=== PATIENT | female | born 1970 | race Caucasian/White ===

== ENCOUNTER 2018-08-10 07:52 | Observation (INO) | payer OTHER ==
[2018-08-10] VITALS (20 sets, daily range): BP systolic 112–135; BP diastolic 63–74; PULSE 66–100; RESP 7–18; Ht 144.8 cm; Wt 70.4 kg
[~2018-08-10] VITALS: Ht 144.8 cm; Wt 70.4 kg
[~2018-08-10 07:52] MED LIST: PANT40TA3 PO; PANTOPRAZOLE; RANITIDINE
[2018-08-10] MEDS ORDERED: CEFAZOLIN 2 GM/50 ML (PMX) 50 ML IVPB SCH (08:00)
[2018-08-10] MEDS ORDERED: SOD CHLORIDE 0.9% 1,000 ML IV SCH (08:00)
--- NOTE | 2018-08-10 09:44 | PREAC ---
Date/Time of Note Date/Time of Note DATE: 08/10/18 TIME: 09:43 Anesthesia Eval and Record Evaluation Time Pre-Procedure Interview DATE: 08/10/18 TIME: 09:43 Age 47 Sex female NPO: 8 hrs Preoperative diagnosis left breast cancer Planned procedure left partial mastectomy Past Medical History Past Medical History: Includes GI: GERD (well-controlled) Surgery & Anesthesia Issues No known issue Meds Anticoagulation: No Beta Josie within 24 hr: No Reason Beta Josie not given: Pt. not on B-Josie Active Scripts Pantoprazole* (Protonix*) 40 Mg Tablet., 40 MG PO DAILY, #30 TAB Prov:DAJUAN TALBOT [employer]ODUCT MARKETING INTERN 03/07/15 Reported Medications [Pantoprazole] No Conflict Check 09/15/15 [Ranitidine] No Conflict Check 09/15/15 Current Medications Sodium Chloride 1,000 ml @ 75 mls/hr [id number] IV ; Start 08/10/18 at 08:00; Stop 08/10/18 at 21:19 Cefazolin Sodium/ Dextrose 50 ml @ 100 mls/hr PREOP IVPB ; Start 08/10/18 at 08:00; Stop 08/10/18 at 19:00 Meds reviewed: Yes Allergies Coded Allergies: No Known Allergy (Unverified , 03/06/15) Allergies Reviewed: Yes Labs/Studies Labs Reviewed: Reviewed by anesthesiologist test: Negative Studies: ECG, CXR Pre-procedure Exam Airway: Adequate mouth opening, Adequate thyromental dist Mallampati: Mallampati II Teeth: Normal Lung: Normal Heart: Normal ASA Physical Status ASA physical status: 2 Emergency: None Planned Anesthetic General/MAC: LMA Planned Pain Management Parenteral pain med, Local by surgeon Pre-operative Attestations Prior to commencing anesthesia and surgery, the patient was re-evaluated, there was verification of: *The patient's identity *The results of appropriate recent lab work and preoperative vital signs *The above evaluation not changing prior to induction *Anesthetic plan, risk benefits, alternative and complications discussed with patient/family; questions answered; patient/family understands, accepts and wishes to proceed. GEREMIAS LEBRON Aug 10, 2018 09:44
[2018-08-10] MEDS ORDERED: FENTAnyl 50 MCG/ML VIAL ONE ×2 (09:59→11:11)
[2018-08-10] MEDS ORDERED: MIDAZOLAM 1 MG/ML 2 ML INJ ONE (09:59)
[2018-08-10] MEDS ORDERED: CEFAZOLIN 1 GM INJ ONE (09:59)
[2018-08-10] MEDS ORDERED: PROPOFOL 20 ML ONE (09:59)
[2018-08-10] MEDS ORDERED: LIDOCAINE 2% (SDV) 5 ML INJ ONE (09:59)
[2018-08-10] MEDS ORDERED: DEXAMETHASONE 4 MG/ML 5 ML INJ ONE (11:06)
[2018-08-10] MEDS ORDERED: ONDANSETRON 4 MG INJ ONE (11:06)
[2018-08-10] MEDS ORDERED: FAMOTIDINE 20 MG INJ ONE (11:06)
[2018-08-10] MEDS ORDERED: METOCLOPRAMIDE 10 MG INJ ONE (11:06)
[2018-08-10] MEDS ORDERED: ISOSULFAN BLUE 1% 5 ML INJ SC ONE (11:18)
[2018-08-10] MEDS ORDERED: HYDROmorphONE 1 MG/5 ML IV SYRINGE IV PRN ×3 (11:30)
[2018-08-10] MEDS ORDERED: ONDANSETRON 4 MG INJ IV PRN ×2 (11:30→13:00)
[2018-08-10] MEDS ORDERED: OXYCODONE/ACETAMINOPHEN (5/325) TAB PO PRN ×2 (11:30)
[2018-08-10] MEDS ORDERED: MEPERIDINE 25 MG INJ IV PRN (11:30)
[2018-08-10] MEDS: D5W-0.45 NACL + KCL 20 MEQ 1,000 ML IV SCH ×2 (12:50→22:06)
--- NOTE | 2018-08-10 12:50 | SIPON ---
Date/Time of Note Date/Time of Note DATE: 08/10/18 TIME: 12:48 Operative Report Preoperative Diagnosis Locally advanced left breast cancer Postoperative Diagnosis Same Operation/Procedure Performed Left needle directed partial mastectomy and axillary dissection Surgeon see signature line access services assistant Dr Tang Anesthesia: general Estimated blood loss: 10 - 50 ml's Transfusion Required none Specimen Left partial mastectomy specimen and additional anterior margin tissue and left axillary contents Grafts/Implants none Complications none ROMAINE KAUR MD Aug 10, 2018 12:50
[2018-08-10] MEDS ORDERED: morphine 2 MG INJ IV PRN (13:00)
[2018-08-10] MEDS: SOD CHLORIDE 0.9% 1,000 ML IV SCH (13:39)
--- NOTE | 2018-08-10 14:22 | PAC ---
Date/Time of Note Date/Time of Note DATE: 08/10/18 TIME: 14:22 Post-Anesthesia Notes Post-Anesthesia Note Last documented vital signs Vital Signs Date Temp Pulse Resp B/P (MAP) Pulse Ox O2 O2 Flow FiO2 Time Delivery Rate 08/10/18 88 12 127/66 100 Nasal 3.0 13:29 (86) Cannula 08/10/18 98.6 12:57 Activity: WNL Respiratory function: WNL Cardiovascular function: WNL Mental status: Baseline Pain reasonably controlled: Yes Hydration appropriate: Yes Nausea/Vomiting absent: Yes GEREMIAS LEBRON Aug 10, 2018 14:22
[2018-08-10] MEDS: ACETAMINOPHEN 1000MG/100ML IV 100 ML IVPB PRN (14:25)
--- NOTE | 2018-08-10 14:43 | OPR ---
DATE OF OPERATION: 08/10/2018 PREOPERATIVE DIAGNOSIS: Locally advanced left breast cancer. POSTOPERATIVE DIAGNOSIS: Locally advanced left breast cancer. OPERATION PERFORMED: Left needle-directed partial mastectomy and axillary dissection. ANESTHESIA: General. ANESTHESIOLOGIST: Nurse wire coater, Robert Aragon. SURGEON: Juventino Valdes MD APPLICATION ARCHITECT: Jason Acosta MD INDICATIONS FOR PROCEDURE: The patient is an unfortunate 47-year-old female who underwent surveillan ce mammography and was found to have a suspicious lesion in the retroareolar area. Ultrasound biopsy was then performed, confirmed invasive cancer. She also had a large abnormal appearing left axillar y lymph nodes and biopsy confirmed axillary metastases. DESCRIPTION OF PROCEDURE: The patient was brought to the operating theater, placed under general ane sthesia. The left breast in the axillary region was prepped and draped in the usual sterile fashion. Attention was directed to performing the partial mastectomy. A periareolar incision was made from the 12 o'clock location through the 3 o'clock location to the 6 o'clock location. Subcutaneous tissu e was dissected with cautery. Skin edges were elevated with skin hooks and wide circumferential diss ection of the tissue associated with the mass then took place using cautery. Specimen was then [place], transected, oriented, and sent for radiographic confirmation of capture. Dr. Valdes then inspect ed the retroareolar area under the nipple. There was some suspicion that there was some possible res idual malignancy. Therefore, an additional anterior margin was dissected using cautery. It was orie nted and sent for permanent pathologic analysis. The wound was then irrigated. Minimal bleeding was controlled with cautery, and the skin was then reapproximated with a deep dermal layer of 4-0 Vicryl sutures in interrupted fashion, followed by final skin approximation with 5-0 PDS sutures in subcuti cular fashion. Attention was then directed to performing the axillary dissection. Approximately 5 c m incision was made in the left axillary hairline. Subcutaneous tissue was dissected with cautery do wn through the clavipectoral fascia. With blunt dissection along the chest wall, the long thoracic n erve was identified and kept out of harm's way. There were multiple firm palpable lymph nodes consis tent with the known axillary metastases. More superiorly, the axillary vein was identified and disse cted from medial to lateral. Posterolaterally, the latissimus dorsi muscle was identified throughout its course. The thoracodorsal neurovascular bundle was also identified and dissected throughout its course and kept out of harm's way. Significant portion of level 1 and level 2 lymph nodes were then meticulously dissected with combination of suture ligation, the LigaSure device and cautery. Specim en was elevated, transected, and sent for permanent pathologic analysis. Dr. Valdes palpated the leve l 3 region. There did not appear to be any definite residual disease. The wound was then irrigated. Minimal bleeding was controlled with cautery. A #10 flat Levy-Gonzalez drain was then brought thro ugh the left mid axillary line. It was cut to size, laid within the axilla and secured in place with 2-0 nylon suture in the standard fashion. The skin was then reapproximated with 4-0 Vicryl suture i n subcuticular fashion. Dermabond was then applied to both incisions. The patient tolerated the pro cedure well. The estimated blood loss was 50 mL. There were no complications and the patient was tr ansported to the recovery room in stable condition, where circumferential compression dressing was ap plied. Dictated By: JUVENTINO VALDES MD TL/JUAN Conf#: [id number] DID#: [id number] CC: JASON ACOSTA MD;*EndCC*
[2018-08-10] MEDS: HYDROCODONE/APAP (5/325) TAB PO PRN (22:06)
[2018-08-11] MEDS: ACETAMINOPHEN 1000MG/100ML IV 100 ML IVPB PRN (00:47)
[2018-08-11 01:40] VITALS: BP 104/58; PULSE 76; RESP 18
[2018-08-11] MEDS: SOD CHLORIDE 0.9% 1,000 ML IV SCH ×2 (02:00→14:10)
[2018-08-11] MEDS: D5W-0.45 NACL + KCL 20 MEQ 1,000 ML IV SCH ×2 (04:50→12:43)
--- NOTE | 2018-08-11 06:08 | HP ---
DATE OF ADMISSION: 08/10/2018 CHIEF COMPLAINT AND HISTORY OF PRESENTING ILLNESS: The patient is a 47-year-old female who was being followed by Dr. Kaur as an outpatient. The patient underwent surveillance mammography and was foun d to have a suspicious lesion in the retroareolar area of the left breast. The patient underwent ult rasound-guided biopsy which confirmed invasive cancer. The patient also had large abnormal appearing left axillary lymph node and biopsy confirmed axillary metastasis. [facility] and underwent left needle-directed partial mastectomy and axillary dissection. The patie nt has significant postoperative pain and is being admitted for further evaluation and management. T he patient denies history of headache, dizziness, syncope. No history of sore throat. No history of abdominal pain. No history of nausea, vomiting. No history of shortness of breath. No history of leg edema or resting leg pain. REVIEW OF SYSTEMS: Other than postoperative pain, rest of the review of systems is unremarkable. PAST SURGICAL HISTORY: The patient is status post . ALLERGIES: NONE. SOCIAL HISTORY: No smoking or alcohol. FAMILY HISTORY: Noncontributory. PHYSICAL EXAMINATION: GENERAL: Revealed the patient to be awake, alert. VITAL SIGNS: Temperature 98.6, pulse 90, respirations 12, blood pressure 129/70, O2 saturation 99% o n 3 liters. HEENT: Atraumatic, normocephalic head. Conjunctivae and lids are normal. Oropharynx is clear. NECK: Supple. No mass or thyromegaly. CHEST: Fairly clear. No use of accessory muscles. CARDIOVASCULAR: Regular rate and rhythm. S1, S2 normal. No murmur. ABDOMEN: Soft, nondistended, nontender. Bowel sounds plus. EXTREMITIES: No leg edema. NEUROLOGIC: The patient is awake, alert. Follows simple commands. Moves all extremities. IMPRESSION: Locally advanced left breast cancer status post partial mastectomy and axillary dissecti on. PLAN: The patient will be admitted on medical floor. The patient will be started on IV fluid, clear liquid diet, which will be advanced as tolerated. For pain control, the patient will be started on Tylenol, [place] and IV morphine based upon severity. For DVT prophylaxis, we will use SCDs. Plan of care was discussed with patient's daughter. We will continue to follow her from a medical standpoint . We will order followup CBC and BMP tomorrow. Dictated By: CHARLEE SILVA/JUAN Conf#: [id number] DID#: [id number] CC: ROMAINE KAUR MD;*EndCC*
[2018-08-11 07:42] VITALS: BP 110/69; PULSE 67; RESP 18
[2018-08-11] MEDS: HYDROCODONE/APAP (5/325) TAB PO PRN (12:05)
[2018-08-11 14:28] VITALS: BP 111/68; PULSE 77; RESP 18
[2018-08-11] MEDS ORDERED: HYDR-3601 PO (14:33)
--- NOTE | 2018-08-11 21:37 | PN ---
DATE: 08/11/2018 Postop day #1 status post left breast partial mastectomy and axillary resection for cancer of left br east. SUBJECTIVE: Has been complaining of pain and required morphine IV today morning and a while ago Norc o pain medication p.o. OBJECTIVE: GENERAL: Awake, alert, no acute distress. VITAL SIGNS: Temperature maximum today 98.6, heart rate 76, respiration 18, blood pressure 104/58, s aturation 93% room air. LABORATORY FINDINGS: No labs has been done today. Levy-Gonzalez drain has drained 50 mL of serosang uineous fluid overnight. Clinically, the patient is not in acute distress. HEART: Regular. LUNGS: Clear. Dressing is intact. Wrap around bias dressing is not too tight. Levy-Gonzalez is in place draining serosanguineous fluid. EXTREMITIES: The patient can move left upper extremity and almost full range. PLAN: The patient can be discharged home to be followed by Dr. Valdes. The patient states that jannette turk she has made an appointment for 08/27/2018 to be seen by Dr. Valdes in his office. The patient kade l be given prescription for pain medication by medical service. Dictated By: ELEUTERIO ACOSTA MD PS/NTS Conf#: [id number] DID#: [id number] CC: ROMAINE VALDES MD;*EndCC*
--- NOTE | 2018-08-11 22:07 | DS ---
Date/Time of Note Date/Time of Note DATE: 08/11/18 TIME: 22:05 Discharge Summary Admission/Discharge Info Admit Date/Time Aug 10, 2018 at 12:50 Discharge Date/Time Aug 11, 2018 at 15:05 Hx of Present Illness The patient is a 47-year-old female who was being followed by Dr. Valdes as an outpatient. The patient underwent surveillance mammography and was found to have a suspicious lesion in the retroareolar area of the left breast. The patient underwent ultrasound-guided biopsy which confirmed invasive cancer. The patient also had large abnormal appearing left axillary lymph node and biopsy confirmed axillary metastasis. The patient was brought into hospital today and underwent left needle-directed partial mastectomy and axillary dissection. The patient has significant postoperative pain and is being admitted for further evaluation and management. The patient denies history of headache, dizziness, syncope. No history of sore throat. No history of abdominal pain. No history of nausea, vomiting. No history of shortness of breath. No history of leg edema or resting leg pain. Hospital Course Locally advanced left breast cancer, status post partial mastectomy and axillary dissection. D/W DR Ingram. Home Meds Active Scripts Hydrocodone Bit-Acetaminophen (Hydrocodone Bit-APAP) 5-325MG Tablet, 1 TAB PO Q4H PRN for MODERATE PAIN LEVEL 4-6, #20 TAB Prov:ESTRELLA ALVARES 08/11/18 Pantoprazole* (Protonix*) 40 Mg Tablet., 40 MG PO DAILY, #30 TAB Prov:DAJUAN TALBOT NP 03/07/15 Discontinued Reported Medications [Pantoprazole] No Conflict Check 09/15/15 [Ranitidine] No Conflict Check 09/15/15 Follow-up Plan Follow-up with Dr. Valdes in 1 to 2 weeks Primary Care Provider Not On Staff Doctor Time spent on discharge: > 30 minutes ESTRELLA ALVARES Aug 11, 2018 22:07
== END 2018-08-11 15:05 | disposition home or self-care (01) ==
LOC: SDS 07:52 → REC 12:50 → INTOOBSV 12:50 → MS1 14:36
PROVIDERS: ADMIT Surgery Surgical Oncology; ATTEND Surgery Surgical Oncology
DX: C50.912 Malignant neoplasm of unspecified site of left female breast (principal); C77.3 Secondary and unspecified malignant neoplasm of axilla and upper limb lymph nodes; Z17.0 Estrogen receptor positive status [ER+]; N60.12 Diffuse cystic mastopathy of left breast; K21.9 Gastro-esophageal reflux disease without esophagitis; M19.90 Unspecified osteoarthritis, unspecified site
CPT/HCPCS: 19301; 38525; 88307; J0131; J0690; J1100; J1170; J2175; J2250; J2270; J2405; J2765; J3010; J3480; J7030; Z7500; Z7512; Z7610; 99217; G0378; Q9968

== ENCOUNTER 2018-10-08 11:41 | Day surgery (SDC) | payer OTHER ==
--- NOTE | 2018-10-07 21:28 | PREAC ---
Date/Time of Note Date/Time of Note DATE: 10/07/18 TIME: 21:27 Anesthesia Eval and Record Evaluation Time Pre-Procedure Interview DATE: 10/07/18 TIME: 21:27 Age 47 Sex female Preoperative diagnosis left breast cancer Planned procedure portacath placement Past Medical History Past Medical History: Includes GI: GERD (well controlled) Surgery & Anesthesia Issues No known issue (s/p left partial mastectomy) Meds Anticoagulation: No Beta Josie within 24 hr: No Reason Beta Josie not given: Pt. not on B-Josie Active Scripts Hydrocodone Bit-Acetaminophen (Hydrocodone Bit-APAP) 5-325MG Tablet, 1 TAB PO Q4H PRN for MODERATE PAIN LEVEL 4-6, #20 TAB Prov:ESTRELLA ALVARES 08/11/18 Pantoprazole* (Protonix*) 40 Mg Tablet., 40 MG PO DAILY, #30 TAB Prov:DAJUAN TALBOT NP 03/07/15 Meds reviewed: Yes Allergies Coded Allergies: No Known Allergy (Unverified , 03/06/15) Allergies Reviewed: Yes Labs/Studies Labs Reviewed: Reviewed by anesthesiologist ASA Physical Status ASA physical status: 3 Emergency: None Planned Anesthetic General/MAC: MAC Planned Pain Management Parenteral pain med, Local by surgeon Pre-operative Attestations Prior to commencing anesthesia and surgery, the patient was re-evaluated, there was verification of: *The patient's identity *The results of appropriate recent lab work and preoperative vital signs *The above evaluation not changing prior to induction *Anesthetic plan, risk benefits, alternative and complications discussed with patient/family; questions answered; patient/family understands, accepts and wishes to proceed. GEREMIAS LEBRON Oct 07, 2018 21:28
[~2018-10-08] VITALS: Ht 149.9 cm; Wt 70.0 kg
[~2018-10-08 11:41] MED LIST changes: +ELIM TOP; +FAMO-96 PO; +HYDR-3601 PO; +HYDR50TA15 PO; +LORA10TA3 PO; -PANTOPRAZOLE; -RANITIDINE
[2018-10-08 14:15] VITALS: Ht 149.9 cm; Wt 70.0 kg
[2018-10-08 14:17] VITALS: BP 138/61; PULSE 66; RESP 16
[2018-10-08] MEDS ORDERED: LIDOCAINE 1% (MDV) 20 ML INJ ONE (14:59)
[2018-10-08] MEDS ORDERED: HEPARIN 1000 UNITS/ML 10 ML INJ ONE (14:59)
[2018-10-08] MEDS ORDERED: CEFAZOLIN 1 GM/50 ML (PMX) 50 ML IVPB ONE (14:59)
[2018-10-08] MEDS ORDERED: POLYMYXIN/BACITRACIN 1L IRRIG IRR ONE (15:00)
[2018-10-08] MEDS ORDERED: MIDAZOLAM 1 MG/ML 2 ML INJ ONE (15:06)
[2018-10-08] MEDS ORDERED: FENTAnyl 50 MCG/ML VIAL ONE (15:06)
[2018-10-08 16:25] VITALS: BP 130/74; PULSE 76; RESP 18
[2018-10-08] MEDS ORDERED: HYDROCODONE/APAP (5/325) TAB PO ONE (17:00)
--- NOTE | 2018-10-08 17:11 | RADRPT ---
PROCEDURE: RIGHT INTERNAL JUGULAR PORT PLACEMENT CLINICAL INDICATION: Breast cancer TECHNIQUE: Versed and Fentanyl were administered by the radiology nurse who monitored the patient. Ancef one gram intravenously was also administered preoperatively. Conscious sedation time: 30 min Fluoroscopy time: 3.2 min Number of images/cine sequences: 2 Informed consent was obtained following careful explanations of the risks and benefits of the procedu re. Preliminary ultrasound was obtained and demonstrates a widely patent right internal jugular vein. This central venous catheter was inserted with all elements of maximal sterile barrier technique, cap AND mask AND sterile gown AND sterile gloves AND sterile full-body drape AND hand hygiene AND 2% chl orhexidine for cutaneous antisepsis. Sterile Ultrasound technique with sterile gel and sterile probe covers was also utilized. The patients right chest and neck were prepped and draped in the usual sterile fashion. 1% lidocai ne was utilized. The right internal jugular vein was punctured with a micropuncture needle under dire ct ultrasound guidance and a guide wire was advanced into the central veins as confirmed by fluorosco py. The needle was exchanged for an introducer. A recorded ultrasound image was obtained. A site in the patients chest wall was selected and 1% lidocaine with epinephrine was administered to the skin. Utilizing a #15 blade, an incision was made and a pocket was created utilizing blunt dis section with a Rafaela clamp. The pocket was irrigated with normal saline. The catheter of the port was then tunneled retrograde from the pocket towards the puncture site in th e patients neck. A guidewire was advanced through the introducer in the patients neck and the i ntroducer was exchanged over the wire for a #9 [place] sheath, which was placed in the right internal jugular vein. The catheter was advanced through the peel-away sheath and the sheath was removed. The tip of the catheter was placed in the mid right atrium. The proximal end of the catheter was then cut to the appropriate length and connected to the port. The port was placed inside the pocket. It flush ed and aspirated well. A photo spot image confirms proper positioning of the catheter tip in the upper right atrium. The incision in the patients chest was closed with interrupted subcutaneous 2-0 Vicryl sutures. Th e incision in the neck was closed with a subcuticular 4-0 Vicryl suture. Dermabond was applied to bot h incisions and Steri-Strips were also applied. The port was accessed and flushed with heparinized saline. A sterile dressing was applied. The patient tolerated the procedure well COMPARISON: none FINDINGS: as above. RPTAT: AA IMPRESSION: 1. Uncomplicated placement of an #7 [place] single lumen Power Injectable Port in the right internal j ugular vein with its tip overlying the upper right atrium region. 2. The catheter is ready for use. .Yusef Somers MD, MD Date Time Electronically viewed and signed by .Yusef Somers MD, on 10/08/2018 17:11 .S/
--- NOTE | 2018-10-20 14:58 | HPN ---
Date/Time of Note Date/Time of Note DATE: 10/20/18 TIME: 14:58 Interval H&P Admission Note Pt. seen H&P reviewed: No system changes PRASANNA HUIZAR MD Oct 20, 2018 14:58
== END 2018-10-08 17:28 | disposition home or self-care (01) ==
LOC: SDS 11:41
PROVIDERS: ATTEND Internal Medicine Hematology & Oncology
DX: C50.912 Malignant neoplasm of unspecified site of left female breast (principal)
CPT/HCPCS: 36561; 85025; 85610; 85730; C1788; J0690; J1644; J2250; J3010; Z7610

== ENCOUNTER 2018-10-14 22:09 | Emergency (ER) | payer OTHER ==
[~2018-10-14] VITALS: Ht 144.8 cm; Wt 71.3 kg
[~2018-10-14 22:09] MED LIST changes: -HYDR-3601 PO; -PANT40TA3 PO
[2018-10-14 22:18] VITALS: BP 142/72; PULSE 77; RESP 18; Ht 144.8 cm; Wt 71.3 kg
[2018-10-15] MEDS ORDERED: FAMOTIDINE 20 MG TAB PO ONE (01:00)
[2018-10-15] MEDS ORDERED: DIPHENHYDRAMINE 50 MG CAP PO ONE (01:00)
== END 2018-10-15 01:42 | disposition home or self-care (01) ==
LOC: FTE 22:09
DX: L29.9 Pruritus, unspecified (principal); C50.912 Malignant neoplasm of unspecified site of left female breast
CPT/HCPCS: 81025; Z7502; Z7610; 99283